=== PATIENT | female | born 1990 | race Caucasian/White ===

== ENCOUNTER 2017-06-25 15:58 | Emergency (ER) | payer OTHER | END 2017-06-25 19:15 | disposition home or self-care (01) | LOC: M ED 15:58 | DX: M54.9 Dorsalgia, unspecified (principal) | CPT/HCPCS: 72072 ==

== ENCOUNTER → 2017-08-07 | Outpatient (REF) | payer OTHER ==
[2017-08-07 14:01] LABS: HEMATOCRIT 36.8 % (36.0-47.0); HEMOGLOBIN 12.3 g/dl (12.0-15.5); MEAN CORPUSCULAR HEMOGLOBIN 28.3 pg (27.0-33.0); MEAN CORPUSCULAR HGB CONC 33.4 g/dl (32.0-36.5); MEAN CORPUSCULAR VOLUME 84.6 fl (80.0-96.0); PLATELET COUNT, AUTOMATED 168 10^3/uL (150-450); RED BLOOD COUNT 4.35 10^6/uL (4.00-5.40); RED CELL DISTRIBUTION WIDTH 12.8 % (11.5-14.5); WHITE BLOOD COUNT 6.3 10^3/uL (4.0-10.0)
[2017-08-07 14:50] LABS: HCG, SERUM QUANTITATIVE 87204 MIU/ML
[2017-08-08 12:35] LABS: RUBELLA IgG QUALITATIVE IMMUNE (IMMUNE)
[2017-08-08 13:04] LABS: HIV 1&2 SCREEN CENTAUR NEGATIVE (NEGATIVE)
[2017-08-08 13:04] LABS: HEPATITIS C VIRUS ABY INDEX < 0.0 INDEX (<0.8)
[2017-08-08 14:34] LABS: HBsAg Prenatal NEGATIVE (NEGATIVE)
== END ==
LOC: M LAB REF 13:11
DX: O36.80X0 Pregnancy with inconclusive fetal viability, not applicable or unspecified (principal); Z32.01 Encounter for pregnancy test, result positive

== ENCOUNTER → 2017-12-01 | Outpatient (CLI) | payer OTHER ==
[2017-12-01 14:32] LABS: HEMATOCRIT 32.9 % (36.0-47.0); HEMOGLOBIN 10.8 g/dl (12.0-15.5); MEAN CORPUSCULAR HEMOGLOBIN 28.9 pg (27.0-33.0); MEAN CORPUSCULAR HGB CONC 32.8 g/dl (32.0-36.5); PLATELET COUNT, AUTOMATED 126 10^3/uL (150-450); RED BLOOD COUNT 3.74 10^6/uL (4.00-5.40); WHITE BLOOD COUNT 9.5 10^3/uL (4.0-10.0)
[2017-12-01 15:18] LABS: GLUCOSE CHALLENGE TEST 1 HOUR 97 MG/DL (LESS THAN 140)
== END ==
LOC: M LAB 12:57
DX: Z34.82 Encounter for supervision of other normal pregnancy, second trimester (principal); Z36.89 Encounter for other specified antenatal screening
CPT/HCPCS: 82950

== ENCOUNTER → 2018-01-29 | Outpatient (REF) | payer OTHER ==
[2018-01-29 18:43] LABS: HEMATOCRIT 32.9 % (36.0-47.0); HEMOGLOBIN 10.7 g/dl (12.0-15.5); MEAN CORPUSCULAR HEMOGLOBIN 27.4 pg (27.0-33.0); MEAN CORPUSCULAR HGB CONC 32.5 g/dl (32.0-36.5); MEAN CORPUSCULAR VOLUME 84.4 fl (80.0-96.0); PLATELET COUNT, AUTOMATED 124 10^3/uL (150-450); RED CELL DISTRIBUTION WIDTH 13.2 % (11.5-14.5); WHITE BLOOD COUNT 8.5 10^3/uL (4.0-10.0)
== END ==
LOC: M LAB REF 17:44
DX: Z34.03 Encounter for supervision of normal first pregnancy, third trimester (principal); Z36.89 Encounter for other specified antenatal screening
CPT/HCPCS: 85027

== ENCOUNTER → 2018-02-16 | Outpatient (REF) | payer OTHER | LOC: M LAB REF 16:37 | DX: Z34.83 Encounter for supervision of other normal pregnancy, third trimester (principal) ==

== ENCOUNTER 2018-03-03 23:45 | Inpatient (IN) | payer OTHER ==
[2018-03-04] MEDS: LACTATED RINGER'S 1000 ML IV (01:00)
[2018-03-04] MEDS ORDERED: LR 1,000 ML IV (01:00)
[2018-03-04 01:36] LABS: HEMATOCRIT 33.3 % (36.0-47.0); HEMOGLOBIN 10.5 g/dl (12.0-15.5); MEAN CORPUSCULAR HEMOGLOBIN 26.1 pg (27.0-33.0); MEAN CORPUSCULAR HGB CONC 31.5 g/dl (32.0-36.5); MEAN CORPUSCULAR VOLUME 82.6 fl (80.0-96.0); PLATELET COUNT, AUTOMATED 110 10^3/uL (150-450); RED BLOOD COUNT 4.03 10^6/uL (4.00-5.40); RED CELL DISTRIBUTION WIDTH 13.5 % (11.5-14.5); WHITE BLOOD COUNT 9.4 10^3/uL (4.0-10.0)
[2018-03-04] MEDS ORDERED: FENTANYL 2MCG/ML ROPIVACAINE 0.2% IN 0.9% NACL 200ML IVBAG As Ordered (04:42)
[2018-03-04] MEDS ORDERED: EPIDURAL COMMENT XX (05:35)
[2018-03-04] MEDS ORDERED: diphenhydrAMINE INJ 50MG/ML VIAL (J1200) IV (05:35)
[2018-03-04] MEDS ORDERED: REFRIGERATOR IV KEYS XX (05:35)
[2018-03-04] MEDS ORDERED: NALOXONE INJ 0.4 MG/1 ML VIAL (J2310) IV (05:35)
[2018-03-04] MEDS ORDERED: EPIDURAL/PCA KEYS XX (05:35)
[2018-03-04] MEDS ORDERED: ePHEDrine SULFATE 25 MG/5 ML(5MG/ML) SYRINGE IV (05:35)
[2018-03-04] MEDS ORDERED: ONDANSETRON 4MG/2ML VIAL (J2405) IV (05:35)
[2018-03-04] MEDS ORDERED: LACTATED RINGER'S 1000 ML IV (05:35)
[2018-03-04] MEDS: FENTANYL/ROPIVACAINE/NACL BAG 200 ML EPIDURAL (05:35)
[2018-03-04] MEDS ORDERED: OXYTOCIN 30 UNITS IN 0.9% NaCl 500ML IV BAG (J2590) As Ordered (05:58)
[2018-03-04] MEDS ORDERED: OXYTOCIN DRIP 30 UNITS in APPROPRIATE DILUENT 1 EA IV (06:00)
[2018-03-04] MEDS: OXYTOCIN DRIP 30 UNITS in APPROPRIATE DILUENT 1 EA IV (06:20)
[2018-03-04] MEDS ORDERED: ACETAMINOPHEN 500 MG TAB PO (06:30)
[2018-03-04] MEDS ORDERED: METHYLERGONOVINE MALEATE 0.2 MG TAB PO (06:30)
[2018-03-04] MEDS ORDERED: DOCUSATE SODIUM 100 MG CAP PO (06:30)
[2018-03-04] MEDS ORDERED: DIBUCAINE 1% OINTMENT 30GM TOP (06:30)
[2018-03-04] MEDS ORDERED: RHOGAM 300 MCG (1500 IU) INJ (J2790) IM (06:30)
[2018-03-04] MEDS ORDERED: MEASLES,MUMPS,RUBELLA VACCINE INJ (MMR-II) (90707) SC (06:30)
[2018-03-04 06:43] LABS: CORD GAS ABE V -1.7; CORD GAS O2 SAT V 85.9 %; CORD GAS PCO2 V 38.9 mmHg; CORD GAS PH V 7.389 UNITS; CORD GAS PO2 V 39.4 mmHg; CORD GAS SBC V 22.8 MEQ/L; CORD GAS TCO2 V 24.2 MEQ/L
[2018-03-04 06:44] LABS: CORD GAS ABE A -2.9; CORD GAS HCO3 A 25.1 MEQ/L; CORD GAS O2 SAT A 37.8 %; CORD GAS PH A 7.262 UNITS; CORD GAS PO2 A 19.1 mmHg; CORD GAS SBC A 20.6 MEQ/L; CORD GAS TCO2 A 26.9 MEQ/L
[2018-03-04] MEDS: PRENATAL VITAMINS CHEWABLE TABLET PO (09:00)
[2018-03-04] MEDS: IBUPROFEN 800 MG TAB PO (16:57)
[2018-03-05] MEDS: PRENATAL VITAMINS CHEWABLE TABLET PO (08:47)
[2018-03-05] MEDS: INFLUENZA QUADRIVALENT PF VACCINE 0.5ML SYRINGE (90686) IM (08:49)
== END 2018-03-05 10:55 | disposition home or self-care (01) | DRG 807 ==
LOC: M LDO 23:45 → M LDI 03-04 04:38 → M OBS 03-04 09:23
PROVIDERS: Obstetrics & Gynecology
PROC: 10E0XZZ Delivery of Products of Conception, External Approach (ICD-10-PCS; principal; 2018-03-04)
DX: O80 Encounter for full-term uncomplicated delivery (principal); Z37.0 Single live birth; Z3A.39 39 weeks gestation of pregnancy